=== PATIENT | female | born 1975 | race Caucasian/White ===

== ENCOUNTER → 2023-11-07 08:45 | Outpatient (REF) | payer BC, OTHER, SELFPAY | LOC: WDC 08:45 | PROVIDERS: ATTENDING PHYSICIAN Obstetrics & Gynecology; FAMILY PHYSICIAN Family Medicine | DX: Z12.31 Encounter for screening mammogram for malignant neoplasm of breast (principal) | CPT/HCPCS: 77063; 77067 ==

== ENCOUNTER 2024-04-24 14:40 | Emergency (ER) | payer BC, OTHER, SELFPAY ==
[2024-04-24 14:41] VITALS: BP 180/90
[2024-04-24 15:05] LABS: Urine Albumin Trace (Neg - Trace); Urine Bilirubin Negative (Negative); Urine Character Clear (Clear); Urine Color Yellow; Urine Glucose Negative (Negative); Urine Ketone Negative (Negative); Urine Leukocyte Trace (Negative); Urine Nitrite Negative (Negative); Urine Occult Blood Negative (Negative); Urine Urobilinogen Negative (Neg - 1+)
[2024-04-24 15:07] LABS: % Basophils 0.2 % (0-2); % Eosinophils 1.5 % (0-6); % Immature Granulocytes 0.2 % (0-0.5); % Lymphocytes 28.2 % (20.5-51.1); % Monocytes 6.1 % (1.7-9.3); % Neutrophils 63.8 % (42.2-75.2); Absolute Eosinophils 0.1 10^3/uL (0-0.7); Absolute Lymphocytes 2.5 10^3/uL (1.2-3.4); Absolute Monocytes 0.5 10^3/uL (0.1-0.6); Absolute Neutrophils 5.5 10^3/uL (1.4-6.5); Hematocrit 40.3 % (37.0-47.0); Hemoglobin 13.5 g/dL (12.0-16.0); Mean Corp Hgb Conc. 33.5 g/dL (33.0-37.0); Mean Corpuscular Hgb 29.4 pg (27.0-31.0); Mean Corpuscular Volume 87.8 fL (81.0-99.0); Mean Platelet Volume 9.7 fL (7.4-10.4); Nucleated Red Blood Cells % 0 %; Platelet Count 434 10^3/uL (130-400); Red Blood Cell Count 4.59 10^6/uL (4.20-5.40); Red Cell Dist. Width 12.6 % (11.5-14.5); White Blood Cell Count 8.7 10^3/uL (4.8-10.8)
[2024-04-24 15:14] LABS: Urine Squamous Cell 16-20 /LPF (Few)
[2024-04-24 15:15] LABS: Urine Bacteria Few (Negative); Urine Mucus Few; Urine Red Blood Cell 0-2 /HPF (0-2)
[2024-04-24 15:20] LABS: ALT (SGPT) 19 U/L (0-35); AST (SGOT) 21 U/L (14-36); Albumin 4.5 g/dl (3.5-5.0); Alkaline Phosphatase 71 U/L (38-126); Blood Urea Nitrogen 11 mg/dl (7-17); Calcium 9.3 mg/dl (8.4-10.2); Carbon Dioxide 26 mmol/L (22-30); Chloride 103 mmol/L (98-107); Glucose 101 mg/dl (70-99); Lipase 117 U/L (23-300); Sodium 139 mmol/L (135-145); Total Bilirubin 0.9 mg/dl (0.2-1.3); Total Protein 7.1 g/dl (6.3-8.2); eGFR > 60.00
--- NOTE | 2024-04-24 16:46 | ED.GENMED ---
History of Present Illness
<ALIN Huang Last Filed: 04/24/24 21:02>
General
Chief Complaint: Abdominal Pain
Source: patient
Exam Limitations: none
Time Seen by Provider: 04/24/24 16:45
Nursing documentation reviewed up to this point in time: agreed with
History of Present Illness
History of Present Illness:
49-year-old female with a past medical history of hypothyroidism, ovarian cyst presents emergency department today with concerns of right lower quadrant pain. Patient states that this started last night. She made appointment to see her primary
care provider today who sent her to the emergency department for appendicitis. Patient reports that the pain is a nagging type pain she cannot get in a position where she is comfortable or position where the pain lessens. Patient has no associated
nausea or vomiting. She notes no changes to her appetite, no fevers or chills, no changes to her stools. Patient reports that she has been feeling well the past few days. Of note, a few weeks ago she had upper abdominal pain and vomiting which
was attributed to gastritis. Patient has a past abdominal surgical history of . She is a family history of ovarian cancer in her mother. She denies any chest pain or shortness of breath.
Past History
<ALIN Huang Last Filed: 04/24/24 21:02>
Past History
ED Past Medical History: Hypothyroidism and Other (kidney stone)
ED Past Surgical History: Other (Thyroidectomy 1991)
Social History
Tobacco: Non-smoker
Personal:
Living: with family
Family History
Family History: Other
Review of Systems
<ALIN Huang Last Filed: 04/24/24 21:02>
Review of Systems
All Other Systems: ROS reviewed and negative except as documented in HPI and ROS
Phy Exam
<ALIN Huang Last Filed: 04/24/24 21:02>
Physical Exam
Physical Exam:
General: Patient is well appearing and in no acute distress; non-toxic
Skin: Warm and dry, no rashes or lesions
Head: Normocephalic, atraumatic
Eyes: Sclera non-icteric. EOMs intact. PERRLA.
Cardiac: Regular rate and rhythm, no murmurs
Peripheral Vascular: No lower extremity swelling or edema
Pulm: Normal respiratory effort, no wheezes, rales, or rhonchi
Abdomen: Right lower quadrant tenderness. No rebound tenderness, no guarding, negative psoas sign, negative obturator sign.
Neuro: CN II-XII intact, no focal neurologic deficits.
Psychiatric: Appropriate mood and affect.
Course
<Shanthi Carvalho PA-C - Last Filed: 04/24/24 21:02>
Orders/Labs/Results
Orders:
Orders
04/24/24 14:53
CMP [Comprehensive Metabolic Panel] Urgent
Complete Blood Count/With Diff Urgent
Lipase Urgent
Urinalysis Reflex To Culture Urgent
Date Specimen was Collected: 04/24/24
Time Specimen was Collected: 14:46
Urine Microscopic Reflex Cult Urgent
04/24/24 16:57
CT Abd/pelvis W Iv Cont Urgent
Comment:
Reason For Exam: rlq pain
04/24/24 20:33
US Abdomen - Appendix Only Urgent
Comment:
Reason For Exam: rlq pain
US Pelvis W Transvag Combined Urgent
Comment:
Reason For Exam: rlq pain
04/24/24 21:27
0.9% Sodium Chloride 1000 ml [Nss] 1,000 ml IV BOLUS
Abnormal Lab Results
04/24/24
14:53
Plt Count 434 H 10^3/uL
(130-400)
Glucose 101 H mg/dl
(70-99)
Leukocyte Esterase Rfl Trace A
(Negative)
Urine Bacteria (Reflex) Few A
(Negative)
04/24/24 14:53
04/24/24 14:53
Vital Signs
Initial and Last Documented VS:
Initial Vital Signs
Temp Pulse Resp BP Pulse Ox
98.8 F 96 16 180/90 98
04/24/24 14:41 04/24/24 14:41 04/24/24 14:41 04/24/24 14:41 04/24/24 14:41
Last Documented Vital Signs
Temp Pulse Resp BP Pulse Ox
98.2 F 78 16 151/66 95
04/24/24 23:00 04/24/24 23:00 04/24/24 23:00 04/24/24 23:00 04/24/24 23:30
<Randy West MD - Last Filed: 04/24/24 18:50>
Orders/Labs/Results
Orders:
Orders
04/24/24 14:53
CMP [Comprehensive Metabolic Panel] Urgent
Complete Blood Count/With Diff Urgent
Lipase Urgent
Urinalysis Reflex To Culture Urgent
Date Specimen was Collected: 04/24/24
Time Specimen was Collected: 14:46
Urine Microscopic Reflex Cult Urgent
04/24/24 16:57
CT Abd/pelvis W Iv Cont Urgent
Comment:
Reason For Exam: rlq pain
04/24/24 20:33
US Abdomen - Appendix Only Urgent
Comment:
Reason For Exam: rlq pain
US Pelvis W Transvag Combined Urgent
Comment:
Reason For Exam: rlq pain
04/24/24 21:27
0.9% Sodium Chloride 1000 ml [Nss] 1,000 ml IV BOLUS
Abnormal Lab Results
04/24/24
14:53
Plt Count 434 H 10^3/uL
(130-400)
Glucose 101 H mg/dl
(70-99)
Leukocyte Esterase Rfl Trace A
(Negative)
Urine Bacteria (Reflex) Few A
(Negative)
04/24/24 14:53
04/24/24 14:53
Vital Signs
Initial and Last Documented VS:
Initial Vital Signs
Temp Pulse Resp BP Pulse Ox
98.8 F 96 16 180/90 98
04/24/24 14:41 04/24/24 14:41 04/24/24 14:41 04/24/24 14:41 04/24/24 14:41
Last Documented Vital Signs
Temp Pulse Resp BP Pulse Ox
98.2 F 78 16 151/66 95
04/24/24 23:00 04/24/24 23:00 04/24/24 23:00 04/24/24 23:00 04/24/24 23:30
<Trevon Reyes MD - Last Filed: 04/25/24 00:56>
Orders/Labs/Results
Orders:
Orders
04/24/24 14:53
CMP [Comprehensive Metabolic Panel] Urgent
Complete Blood Count/With Diff Urgent
Lipase Urgent
Urinalysis Reflex To Culture Urgent
Date Specimen was Collected: 04/24/24
Time Specimen was Collected: 14:46
Urine Microscopic Reflex Cult Urgent
04/24/24 16:57
CT Abd/pelvis W Iv Cont Urgent
Comment:
Reason For Exam: rlq pain
04/24/24 20:33
US Abdomen - Appendix Only Urgent
Comment:
Reason For Exam: rlq pain
US Pelvis W Transvag Combined Urgent
Comment:
Reason For Exam: rlq pain
04/24/24 21:27
0.9% Sodium Chloride 1000 ml [Nss] 1,000 ml IV BOLUS
Abnormal Lab Results
04/24/24
14:53
Plt Count 434 H 10^3/uL
(130-400)
Glucose 101 H mg/dl
(70-99)
Leukocyte Esterase Rfl Trace A
(Negative)
Urine Bacteria (Reflex) Few A
(Negative)
04/24/24 14:53
04/24/24 14:53
Vital Signs
Initial and Last Documented VS:
Initial Vital Signs
Temp Pulse Resp BP Pulse Ox
98.8 F 96 16 180/90 98
04/24/24 14:41 04/24/24 14:41 04/24/24 14:41 04/24/24 14:41 04/24/24 14:41
Last Documented Vital Signs
Temp Pulse Resp BP Pulse Ox
98.2 F 78 16 151/66 95
04/24/24 23:00 04/24/24 23:00 04/24/24 23:00 04/24/24 23:00 04/24/24 23:30
<Shanthi Carvalho PA-C - Last Filed: 04/24/24 21:02>
MDM/Problems Addressed
Differential Diagnosis Includes:
see below
MDM/Problems Addressed:
NUMBER AND COMPLEXITY OF PROBLEMS ADDRESSED AT THE ENCOUNTER
� Chronic conditions affecting care: hypothyroidism
� Acute Exacerbation and/or Progression of Chronic Illness:
� Differential Diagnosis includes: Differentials include appendicitis, musculoskeletal sprain/strain, acute cystitis, ovarian cyst/torsion, hepatic flexture diverticulitis
AMOUNT AND/OR COMPLEXITY OF DATA TO BE REVIEWED AND ANALYZED
� I performed an independent evaluation of and my interpretation is:
CT:
Laboratory Studies: Unremarkable, no leukocytosis, LFTs normal, urinalysis unremarkable
Other:
� Review of other/old records: Reviewed previous ER physician documentation from 07/02/2023 patient seen for any right ureteral calculus
� Clinical information was obtained by an independent historian:
� Prescriptions/Medications Considered but not given: none
� Further testing considered but not performed: n/a
RISK OF COMPLICATIONS AND/OR MORBIDITY OR MORTALITY OF PATIENT MANAGEMENT
� Social determinants of health affecting care: none
� Discussion with other providers: ER attending
� Escalation of care including admission/observation vs risk of discharge considered:
49-year-old female past medical history of ovarian cysts, hypothyroidism presents emergency department today with concerns of right lower quadrant pain since last night. Patient reports that it is a nagging pain and she cannot feel position where
she feels comfortable or position that lessens her pain. She has no associated nausea or vomiting or fevers or chills. Will send for CAT scan to rule out appendicitis. Patient has no associated urinary symptoms.
CAT scan noted, shows evidence of ovarian cysts as well as partial UPJ obstruction. The CAT scan report states that they are not able to confidently visualize the appendix. On reassessment I did discuss these results with patient. I have a very
low suspicion for appendicitis at this time as patient is very well-appearing and is able to tolerate p.o. intake. I discussed case again with my attending, we offered repeat CAT scan the patient with oral contrast versus trying to visualize
appendix with ultrasound, getting pelvic ultrasound, and discharging with outpatient follow-up and continuing to monitor symptoms. Patient opted for ultrasounds. I think this is reasonable. Case signed out to Luda LARIOS at 9:00 pm/
<Shanthi Carvalho PA-C - Last Filed: 04/24/24 21:02>
*Critical Care Note
Total Time (30-74mins, 75-104mins- exclusive of procedures): Not Applicable
<Trevon Reyes MD - Last Filed: 04/25/24 00:56>
Update Note
Update Note:
UPDATE (Trevon Reyes MD)
I have seen and evaluated the patient after signout and reviewed all labs and imaging.
Focused HPI: I resumed care of this 49-year-old female with a past medical history of hypothyroidism, prior history of kidney stones and ovarian cysts, prior surgical history of and partial thyroidectomy; she presented to the ER for
evaluation of abdominal pain she was referred by her primary care physician. She says that her symptoms started on night and they were relatively mild but they persisted all day Saturday and she went to her primary doctor who referred her to
the ER to be evaluated. She reports pain is located to the right umbilicus. She says it is worse with palpations and certain movements, no clear relieving factors noted. She denies any associated nausea vomiting or diarrhea. She denies any UTI
symptoms. She denies having had similar symptoms in the past.
Physical exam: On examination the patient is a well-appearing female in no acute distress. She is mildly hypertensive but her heart rate is normal in the 70s she is breathing in a comfortable respiratory rate of 14 with an oxygen saturation of 95%
on room air. She is afebrile. Her abdomen is soft she has mild tenderness just to the right of her umbilicus but no peritoneal signs. She has no palpable abdominal masses.
Medical Decision Making: This is a 49-year-old female who presented with 24 hours of right lower quadrant abdominal pain. She had lab work sent off including a CBC which showed no leukocytosis. Her CMP was unremarkable. She had a lipase sent
which was normal. She has a urinalysis which was negative for infection, no blood. 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
obstruction. The appendix was unfortunately not definitively visualized. She is currently pending follow-up ultrasound to see if this can identify the appendix as well as a pelvic ultrasound.
Ultrasound reports reviewed: Appendix was not visualized, pelvic ultrasound shows dominant follicle right ovary 2.4 cm but good flow to both ovaries. She has a presumed fibroid on the uterus. No free fluid in the pelvis. At this point although we
cannot completely rule out appendicitis due to lack of visualization on CT or ultrasound clinical suspicion is somewhat low where she is minimally tender she has no leukocytosis or fever and she is actually quite hungry requesting food and drink. I
had a long discussion with the patient explaining the limitations of the studies we have done here. I explained the differential diagnosis for her symptoms and explained that although clinical suspicion at this point is somewhat lower for
appendicitis it cannot be completely ruled out especially if this is an early appendicitis. I offered her admission for serial exams and consideration of repeat scan with p.o. contrast tomorrow if symptoms persist or worsen; we also discussed
potential for discharge with watchful waiting and return for repeat scan if symptoms or not improving or if they are worsening in any point in time. Patient feels her symptoms are relatively mild and wishes to trial discharge with watchful waiting
and repeat scan if symptoms worsen or persist. Using shared decision making we will discharge patient home with plan as above. We spoke in detail about signs to return for including persistent pain, worsening pain, fever or any other concerning
symptoms. All questions answered.
ED Attending Note
<Shanthi Carvalho PA-C - Last Filed: 04/24/24 21:02>
-
Portions of this chart may have been created with voice recognition software.� Occasional wrong word or��sound alike� substitutions may have occurred due to the inherent limitations of voice recognition software.
<Randy West MD - Last Filed: 04/24/24 18:50>
ED Attending Note
Patient seen and examined by attending physician: Yes
I performed the substantive portion of visit, reviewed & personally made and approve the management plan that is documented in note by myself or SOPHIA.: Yes
ED Attending Note:
I have seen and evaluated the patient with a [id number] encounter. I have spoken to the [CECILIO] and involved in the medical history, the physical exam, medical decision making.
Evaluation and management service: agree unless noted differently below.
Results interpretation: agree unless noted differently below.
49-year-old woman with history of ovarian cyst presenting to the emergency department right lower quadrant abdominal pain. Patient states that last night she had upper abdominal pain that she thought was indigestion and a travel to her right lower
quadrant. Has been constant pain. Does wrap around to her back. She has had kidney stones before and this does not feel like a kidney stone. She does state that she has had multiple ovarian cyst that dissolve on its own. They have never
ruptured. She denies any nausea vomiting. No diarrhea. No constipation. No urinary. On exam patient is resting comfortably. She does have right lower quadrant tenderness to palpation. No rebound or guarding. No CVA tenderness. Differential
is appendicitis versus kidney stone versus UTI versus ovarian cyst rupture. Considered torsion though less likely. Will proceed with blood work and CT scan. Consider obtaining ultrasound however will hold off at this time.
Discharge Plan
Departure
Patient Disposition: Home (Routine Discharge)
Date of Disposition: 04/25/24
Time of Disposition: 00:54
Patient with high blood pressure during this ER visit?: Yes
Discharge Problem:
Abdominal pain
Instructions: Abdominal Pain
Prescriptions:
No Action
cetirizine 10 MG tablet
10 mg PO DAILY@1200
evening primrose oil 500 MG capsule
1,300 mg PO HS
cholecalciferol (vitamin D3) 1,000 UNITS tablet
1,000 units PO DAILY
Vitamin E
180 mg PO DAILY
Referrals:
Renata Medina MD [Family Provider] -
Activity Restrictions/Additional Instructions:
You were seen in the emergency room for abdominal pain. Your blood work and scans showed no definite source for your abdominal pain; unfortunately we were not able to completely visualize your appendix and so we could not rule this out 100%.
Despite this, there were no other signs on imaging or lab work to suggest appendicitis. If you notice your symptoms or not improving within the next few days you should follow-up with your primary doctor or return here to have a repeat CT scan with
oral contrast. If you feel your symptoms are worsening at any point in time or if you develop a fever you should return immediately to the emergency to be reassessed.
Thank you for visiting the Emergency Department at [facility].
1. Please schedule a follow up appointment as directed. Call first thing tomorrow morning to make an appointment.
2. If indicated, please take your medications as instructed and indicated on discharge paperwork.
3. If any of your symptoms do not improve, or persist, or become more severe within 6-12 hours, please return to the emergency department for further care.
4. Please return to the emergency department if you develop a headache, neck pain/stiffness, fever greater than 100.4F, chest pain, shortness of breath, persistent nausea, vomiting, slurred speech, difficulty walking, numbness/tingling, weakness,
signs of infection or any other symptoms that are worrisome to you.
Please call [phone] if you have any questions.
Interventions
Interventions:
*Risk Screen - Suicide Last Done: 04/24/24 14:41
*General Assessment Last Done: 04/24/24 14:41
*Neglect/Abuse Screening Last Done: 04/24/24 14:41
ED- Fall Risk Assessment Last Done: 04/24/24 18:15
*ED COVID-19 Vaccine History Last Done: 04/24/24 14:41
*Nursing Disposition Last Done: 04/25/24 01:07
QG-Phbdgo-Oyniuensho Assessment Last Done: 04/24/24 18:15
Discharge Date and Time
Discharge Date/Time: 04/25/24 01:07
Print Language: LITHUANIAN
[2024-04-24 18:15] VITALS: BMI 45.1
[2024-04-24 19:50] VITALS: BP 176/78
[2024-04-24] MEDS: NSS 1000 IV (21:32)
[2024-04-24 22:40] VITALS: BP 168/78
[2024-04-24 23:00] VITALS: BP 151/66
== END 2024-04-25 01:07 | disposition home or self-care (01) ==
LOC: EMR 14:40
PROVIDERS: Student in an Organized Health Care Education/Training Program; EMERGENCY PHYSICIAN Student in an Organized Health Care Education/Training Program; FAMILY PHYSICIAN Family Medicine
DX: R10.31 Right lower quadrant pain (principal); R03.0 Elevated blood-pressure reading, without diagnosis of hypertension; E03.9 Hypothyroidism, unspecified; N83.201 Unspecified ovarian cyst, right side
CPT/HCPCS: 99285; 96360; 74177; 76705; 76830; 76856; 80053; 81003; 81015; 83690; 85025; Q9967

== ENCOUNTER 2024-05-05 06:16 | Day surgery (SDC) | payer BC, OTHER, SELFPAY | END 2024-05-05 09:13 | disposition home or self-care (01) | LOC: GI 06:16 | PROVIDERS: ATTENDING PHYSICIAN Internal Medicine; FAMILY PHYSICIAN Family Medicine | DX: Z12.11 Encounter for screening for malignant neoplasm of colon (principal); D12.0 Benign neoplasm of cecum; K57.30 Diverticulosis of large intestine without perforation or abscess without bleeding; K62.89 Other specified diseases of anus and rectum; K64.4 Residual hemorrhoidal skin tags | CPT/HCPCS: 45385; 88305 ==

== ENCOUNTER → 2024-06-03 12:58 | Outpatient (REF) | payer BC, OTHER, SELFPAY | LOC: RAD 12:58 | PROVIDERS: ATTENDING PHYSICIAN Internal Medicine Rheumatology; FAMILY PHYSICIAN Family Medicine | DX: M32.9 Systemic lupus erythematosus, unspecified (principal); M70.62 Trochanteric bursitis, left hip | CPT/HCPCS: 73523 ==

== ENCOUNTER → 2024-07-13 12:56 | Outpatient (REF) | payer BC, OTHER, SELFPAY | LOC: HWRAD 12:56 | PROVIDERS: ATTENDING PHYSICIAN Internal Medicine; FAMILY PHYSICIAN Family Medicine | DX: N20.0 Calculus of kidney (principal) | CPT/HCPCS: 76775 ==

== ENCOUNTER → 2024-08-05 12:58 | Outpatient (REF) | payer BC, OTHER, SELFPAY | LOC: RAD 12:58 | PROVIDERS: ATTENDING PHYSICIAN Obstetrics & Gynecology; FAMILY PHYSICIAN Family Medicine | DX: N93.9 Abnormal uterine and vaginal bleeding, unspecified (principal); D25.9 Leiomyoma of uterus, unspecified | CPT/HCPCS: 76830; 76856 ==

== ENCOUNTER 2024-08-22 11:18 | Day surgery (SDC) | payer BC, OTHER, SELFPAY ==
[2024-08-22 06:30] VITALS: BP 158/84
[2024-08-22] MEDS: TORADOL 30 MG IV (07:02)
[2024-08-22 07:08] LABS: % Basophils 0.4 % (0-2); % Eosinophils 1.1 % (0-6); % Immature Granulocytes 0.3 % (0-0.5); % Lymphocytes 18.7 % (20.5-51.1); % Monocytes 6.2 % (1.7-9.3); % Neutrophils 73.3 % (42.2-75.2); Absolute Eosinophils 0.1 10^3/uL (0-0.7); Absolute Lymphocytes 1.9 10^3/uL (1.2-3.4); Absolute Monocytes 0.6 10^3/uL (0.1-0.6); Absolute Neutrophils 7.4 10^3/uL (1.4-6.5); Hematocrit 38.2 % (37.0-47.0); Hemoglobin 13.3 g/dL (12.0-16.0); Mean Corp Hgb Conc. 34.8 g/dL (33.0-37.0); Mean Corpuscular Hgb 30.2 pg (27.0-31.0); Mean Corpuscular Volume 86.8 fL (81.0-99.0); Mean Platelet Volume 10.3 fL (7.4-10.4); Nucleated Red Blood Cells % 0 %; Platelet Count 394 10^3/uL (130-400); Red Cell Dist. Width 12.6 % (11.5-14.5); White Blood Cell Count 10.1 10^3/uL (4.8-10.8)
[2024-08-22 07:08] LABS: Urine Albumin 1+ (Neg - Trace); Urine Bilirubin Negative (Negative); Urine Character Clear (Clear); Urine Color Yellow; Urine Glucose Negative (Negative); Urine Ketone Negative (Negative); Urine Leukocyte Negative (Negative); Urine Nitrite Negative (Negative); Urine Occult Blood 3+ (Negative); Urine Specific Gravity 1.015 (<1.030); Urine Urobilinogen Negative (Neg - 1+)
[2024-08-22 07:19] LABS: Urine Amorphous Seen; Urine Bacteria Few (Negative); Urine White Cell 0-2 /HPF (0-5)
[2024-08-22 07:28] LABS: HCG, Serum Qualitative Screen Negative
[2024-08-22 07:29] LABS: ALT (SGPT) 19 U/L (0-35); AST (SGOT) 19 U/L (14-36); Albumin 4.3 g/dl (3.5-5.0); Alkaline Phosphatase 61 U/L (38-126); Blood Urea Nitrogen 16 mg/dl (7-17); Calcium 9.3 mg/dl (8.4-10.2); Carbon Dioxide 24 mmol/L (22-30); Chloride 108 mmol/L (98-107); Glucose 108 mg/dl (70-99); Lipase 82 U/L (23-300); Potassium 3.8 mmol/L (3.5-5.1); Sodium 140 mmol/L (135-145); Total Protein 6.8 g/dl (6.3-8.2); eGFR > 60.00
[2024-08-22 08:30] VITALS: BMI 39.1
[2024-08-22 08:33] VITALS: BP 152/69
[2024-08-22] MEDS: DILAUDID 0.5 MG IV (08:55)
[2024-08-22] MEDS: ZOFRAN 4 MG IV (08:55)
[2024-08-22 09:00] VITALS: BP 152/65
--- NOTE | 2024-08-22 09:14 | ED.GENMED ---
History of Present Illness
General
Chief Complaint: Abdominal Pain
Source: patient
Exam Limitations: none
Time Seen by Provider: 08/22/24 08:59
Nursing documentation reviewed up to this point in time: agreed with
History of Present Illness
History of Present Illness:
49-year-old female with history kidney stones presenting to the emergency department for evaluation of acute onset right flank pain since this morning. Patient states she was awoken this morning around 3:30 AM with severe nausea which was quickly
followed by sharp right flank pain rating into her right abdomen. Pain has been relatively constant since although waxes/wanes in severity. Patient reports associated nausea. She denies any fever, dysuria, hematuria.
Patient states she felt fine prior to going to sleep last night.
Patient has history of kidney stones and follows with Dr. Altman. She was apparently scheduled to have a stone removed from her right kidney on September 07.
Past History
Past History
ED Past Medical History: Hypothyroidism and Other (kidney stone)
ED Past Surgical History: Other (Thyroidectomy 1991)
Social History
Tobacco: Non-smoker
Personal:
Living: with family
Family History
Family History: Other
Review of Systems
Review of Systems
Allergies reviewed?: Yes
All Other Systems: ROS reviewed and negative except as documented in HPI and ROS
Phy Exam
Physical Exam
Physical Exam:
Vitals: Hypertensive, otherwise vital signs stable. Afebrile
General: Patient is mild distress due to pain.
Skin: Warm and dry, no rashes or lesions
Head: Normocephalic, atraumatic
Eyes: Sclera nonicteric. EOMs intact. No nystagmus.
Throat: Protecting airway
Neck: Normal ROM, no cervical spine tenderness, no meningismus
Cardiac: Regular rate and rhythm, no murmurs.
Pulm: Normal respiratory effort, no wheezes, rales, rhonchi heard on exam
.
Abdomen: Abdomen soft. Mild tenderness over right flank and right mid abdomen. No tenderness McBurney's point.
Extremities: No evidence of cyanosis or edema. Palpable DP pulses bilaterally
Neuro: AAOx3. Grossly intact.
Psychiatric: Normal affect.
Course
Orders/Labs/Results
Orders:
Orders
08/22/24 06:41
IV Insert/Care/Rem.- Treatment PRN
08/22/24 06:42
Test Result ONCE
08/22/24 06:52
Complete Blood Count/With Diff Urgent
Comprehensive Metabolic Panel Urgent
HCG, Serum Qualitative Screen Urgent
Comment: Notify provider if positive test present
Lipase Urgent
08/22/24 06:56
Urinalysis Reflex To Culture Urgent
Date Specimen was Collected: 08/22/24
Time Specimen was Collected: 06:42
Urine Microscopic Reflex Cult Urgent
08/22/24 06:59
Ketorolac [Toradol] 30 mg .ROUTE .STK-MED ONE
08/22/24 07:01
Ketorolac [Toradol] 30 mg IV NOW STA
08/22/24 07:07
CT Abd/pel Without Iv Or Oral Urgent
Comment:
Reason For Exam: R flank pain
08/22/24 08:51
HYDROmorphone [Dilaudid] 0.5 mg .ROUTE .STK-MED ONE
Ondansetron Injectable [Zofran] 4 mg .ROUTE .STK-MED ONE
08/22/24 08:52
HYDROmorphone [Dilaudid] 0.5 mg IV NOW STA
Ondansetron Injectable [Zofran] 4 mg IV NOW STA
08/22/24 10:09
UROLOGY CONSULT Urgent
Consulting Provider: Tobi Edwards Jr.
Was physician already notified: Yes
08/22/24 10:30
0.9% Sodium Chloride 1000 ml [Nss] 1,000 ml IV BOLUS
08/22/24 10:32
Electrocardiogram (*1) Urgent
Reason for Study: PreOp
EKG- Treatment ONCE
08/22/24 10:57
Gentamicin Sulfate [Gentamicin] 380 mg 0.9% Sodium Chloride [Nss] 50 ml IV NOW
08/22/24 11:09
Fentanyl Citrate/Pf [Sublimaze] 100 mcg .ROUTE .STK-MED ONE
08/22/24 11:10
Dexamethasone Sod Phosphate [Decadron] 20 mg .ROUTE .STK-MED ONE
Metoclopramide [Reglan] 10 mg .ROUTE .STK-MED ONE
Ondansetron Injectable [Zofran] 4 mg .ROUTE .STK-MED ONE
Propofol [Diprivan] 40 ml .ROUTE .STK-MED
08/22/24 11:18
HYDROmorphone [Dilaudid] 0.25 mg IV PACU-Q5MPRN PRN
HYDROmorphone [Dilaudid] 0.5 mg IV PACU-Q5MPRN PRN
Meperidine [Demerol] 12.5 mg IV PACU-Q5MPRN PRN
Ondansetron Injectable [Zofran] 4 mg IV PACU-ONCEPRN PRN
Notify MD As Directed
Notify physician if: for SDS patients with known or suspected sleep obstructive sleep apnea, monitor in the
PACU.
Notify MD for any apneic/desaturation episodes
O2 Therapy [RESP] Urgent
Titrate/Wean O2 to maintain O2 sat greater than (%): 92
Special Instructions: -Provide supplemental oxygen to achieve O2 sat of 92% or greater.
-After 15 min, may wean O2 and discontinue if patient is able to maintain O2 sat of 92%
or greater during recovery period.
If patient is a discharge home, without oxygen therapy, notify anestheiologist if
unable to maintain O2 SAT of 92% or greater on room air for MD clearance.
08/22/24 11:30
Midazolam HCl [Versed] 2 mg .ROUTE .STK-MED ONE
Normosol (Mult Electrolytes) [Normosol-R/Plasmalyte-A] 1,000 ml IV PER PROTOCOL
08/22/24 12:01
Stone Analysis With Image [S] Routine
Comment: right ureteral stone
08/22/24 12:03
Propofol [Diprivan] 40 ml .ROUTE .STK-MED
08/22/24 12:18
CR Abdomen - 1 View Routine
Reason For Exam: CYSTO, RT URETERAL STONE, LASER, STONE EXTRACTION, STENT PLACED
RF Fluoroscopy, C-arm Routine
08/22/24 12:34
Phenazopyridine HCl [Pyridium] 200 mg .ROUTE .STK-MED ONE
08/22/24 12:35
Tolterodine Extended Release [Detrol LA] 4 mg .ROUTE .STK-MED ONE
08/22/24 13:00
Ibuprofen [Motrin] 600 mg PO SDS-Q6HPRN PRN
Normosol (Mult Electrolytes) [Normosol-R/Plasmalyte-A] 1,000 ml IV SDS-ONCE
Oxycodone [Roxicodone] 5 mg PO SDS-Q4HPRN PRN
Phenazopyridine HCl [Pyridium] 200 mg PO ONCE ONE
Tolterodine Extended Release [Detrol LA] 4 mg PO ONCE ONE
08/22/24 15:00
Ondansetron Injectable [Zofran] 4 mg IV SDS-ONCEPRN PRN
Abnormal Lab Results
08/22/24 08/22/24
06:52 06:56
Absolute Neuts (auto) 7.4 H 10^3/uL
(1.4-6.5)
Lymphocytes % 18.7 L %
(20.5-51.1)
Chloride 108 H mmol/L
(98-107)
Glucose 108 H mg/dl
(70-99)
Ur Occult Blood Reflex 3+ A
(Negative)
Urine RBC 3-6 A /HPF
(0-2)
Urine Bacteria (Reflex) Few A
(Negative)
Urine Albumin (Reflex) 1+ A
(Neg - Trace)
08/22/24 06:52
08/22/24 06:52
Vital Signs
Initial and Last Documented VS:
Initial Vital Signs
Temp Pulse Resp BP Pulse Ox
98.5 F 72 18 158/84 98
08/22/24 06:30 08/22/24 06:30 08/22/24 06:30 08/22/24 06:30 08/22/24 06:30
Last Documented Vital Signs
Temp Pulse Resp BP Pulse Ox
98.5 F 72 18 146/59 97
08/22/24 06:30 08/22/24 06:30 08/22/24 06:30 08/22/24 10:00 08/22/24 10:00
MDM/Problems Addressed
Differential Diagnosis Includes:
Not limited to: Ureterolithiasis, pyelonephritis, appendicitis, ovarian cyst, etc.
MDM/Problems Addressed:
49-year-old female with acute onset right flank pain associated with nausea which started this morning. No fever or dysuria. She does have history of kidney stones. Patient hypertensive, otherwise with stable vital signs. She is afebrile.
Physical exam as above. Prior to my evaluation�patient received 30 mg IM Toradol and 0.5 mg Dilaudid, as well as 4 mg IV Zofran. Labs initiated in triage without acute abnormalities. No leukocytosis. Kidney function normal. CT scan was obtained
which shows a 5 mm obstructing stone in the proximal right ureter associated with severe right-sided hydronephrosis. Urine appears clean without any signs of infection. Patient was scheduled for removal of kidney the stone on right side with on
September 08. Will discuss with urology as patient currently scheduled for procedure on September 08 and pain remains uncontrolled despite IV Dilaudid and IM Toradol. Will continue to monitor for patient's pain control and allow IV fluids to run pending
urology input.
Update: Discussed with urology who came down to evaluate patient at bedside. After lengthy discussion with patient�she will proceed with ureteroscopy +/- stent for surgical intervention today. Will obtain EKG, give IV fluids, IV gentamicin per
urology prior to OR. Patient disposition to the OR under urology service in stable condition. Plan for discharge home later today if procedure is uncomplicated.
Chronic conditions affecting care:
Hx kidney stones
Acute Exacerbation and/or Progression of Chronic Illness:
5 mm obstructing right proximal ureteral stone
*Radiology
Radiology exam reviewed: radiology read reviewed (5 cm obstructing stone in proximal right ureter)
*Pulse Oximetry
Patient hypoxic: no
*EKG
Interpreted by ED Provider?: NA
*Electrical Design Technologist Interpretation
Rate: Electrical Design Technologist- N/A
*Critical Care Note
Total Time (30-74mins, 75-104mins- exclusive of procedures): Not Applicable
Patient Management
Discussion with other providers: Manager Systems (Case discussed with urology)
Escalation/DeEscalation of care consider admission/obs:
Patient disposition to the OR for urology procedure
ED Attending Note
-
Portions of this chart may have been created with voice recognition software.� Occasional wrong word or��sound alike� substitutions may have occurred due to the inherent limitations of voice recognition software.
Discharge Plan
Departure
Patient Disposition: OR
Date of Disposition: 08/22/24
Time of Disposition: 10:29
Admit to doctor: Dr. Edwards
Presentation/result/management discussed w/ accepting MD/DO: Urology
Discharge Problem:
Calculus of proximal right ureter
Interventions
Interventions:
*Risk Screen - Suicide Last Done: 08/22/24 06:30
*General Assessment Last Done: 08/22/24 06:30
*Neglect/Abuse Screening Last Done: 08/22/24 06:30
*ED- Fall Risk Assessment Last Done: 08/22/24 06:30
*ED COVID-19 Vaccine History Last Done: 08/22/24 06:30
*Nursing Disposition Last Done: 08/22/24 11:12
UP-Qntpvr-Normefqfkg Assessment Last Done: 08/22/24 08:30
Discharge Date and Time
Discharge Date/Time: 08/22/24 11:13
[2024-08-22 10:00] VITALS: BP 146/59
[2024-08-22] MEDS: NSS 1000 IV (11:09)
[2024-08-22] MEDS: Pyridium 200 MG PO (13:27)
[2024-08-22] MEDS: DETROL LA 4 MG PO (13:27)
== END 2024-08-22 13:00 | disposition home or self-care (01) ==
LOC: SDS 11:18
PROVIDERS: Student in an Organized Health Care Education/Training Program; ATTENDING PHYSICIAN Specialist; EMERGENCY PHYSICIAN Emergency Medicine; FAMILY PHYSICIAN Family Medicine
DX: N13.2 Hydronephrosis with renal and ureteral calculous obstruction (principal); Z87.442 Personal history of urinary calculi
CPT/HCPCS: 52356; 74018; 74176; 76000; 80053; 81003; 81015; 82365; 83690; 84703; 85025; 93005; 96374; 96375; 96376; 99285

== ENCOUNTER 2024-11-08 20:21 | Emergency (ER) | payer BC, OTHER, SELFPAY ==
[2024-11-08 20:27] VITALS: BP 178/90
[2024-11-08 20:47] LABS: Hematocrit 39.8 % (37.0-47.0); Hemoglobin 13.9 g/dL (12.0-16.0); Mean Corp Hgb Conc. 34.9 g/dL (33.0-37.0); Mean Corpuscular Volume 86.3 fL (81.0-99.0); Nucleated Red Blood Cells % 0 %; Platelet Count 422 10^3/uL (130-400); Red Cell Dist. Width 12.9 % (11.5-14.5)
[2024-11-08 21:00] LABS: Urine Character Clear (Clear)
[2024-11-08 21:10] LABS: ALT (SGPT) 17 U/L (0-35); AST (SGOT) 19 U/L (14-36); Albumin 4.5 g/dl (3.5-5.0); Alkaline Phosphatase 79 U/L (38-126); Blood Urea Nitrogen 9 mg/dl (7-17); Calcium 9.6 mg/dl (8.4-10.2); Carbon Dioxide 27 mmol/L (22-30); Chloride 105 mmol/L (98-107); Glucose 90 mg/dl (70-99); Potassium 4.3 mmol/L (3.5-5.1); Sodium 138 mmol/L (135-145); Total Protein 7.0 g/dl (6.3-8.2); eGFR > 60.00
[2024-11-08 21:49] VITALS: BMI 37.9
--- NOTE | 2024-11-08 21:51 | EDRN ---
Pt has pain L flank intermittently for 1 week, more consistent last 3 days. Pt has known kidney stone, scheduled to have it removed in December. No fever/chills/cough. Pain waxes and wanes dull/sharp. Mild nausea, no vomiting. No abdominal
pain or urinary symptoms. No pain medications taken.
[2024-11-08 21:55] VITALS: BP 169/86
--- NOTE | 2024-11-08 22:13 | ED.GENMED ---
History of Present Illness
General
Chief Complaint: Flank Pain
Time Seen by Provider: 11/08/24 21:49
History of Present Illness
History of Present Illness:
Patient presents to the emergency department with left flank pain. symptoms started 2 days ago. Have been gradually worsening. Pain comes in waves. Feels like a pressure on her side in her back. No nausea or vomiting. No fevers or chills.
Had a ureteral stent placed on the right in August.
Past History
Past History
ED Past Medical History: Hypothyroidism and Other (kidney stone)
ED Past Surgical History: Other (Thyroidectomy 1991)
Social History
Tobacco: Non-smoker
Personal:
Living: with family
Family History
Family History: Other
Phy Exam
Physical Exam
Physical Exam:
GENERAL APPEARANCE: NAD, well developed/ well nourished
EYES lids/conjunctiva normal
EARS/NOSE/THROAT Mucous membranes moist, uvula midline without oral pharyngeal erythema, exudate or swelling
HEAD/NECK normocephalic atraumatic, neck is supple.
RESPIRATORY respiratory effort normal, speaks in full sentences, no accessory muscle use. Lungs clear to auscultation without rhonchi, wheezes, rales
CARDIAC Regular rate and rhythm, no edema.
ABDOMINAL Soft, ND/NT
BACK no CVA ttp
MUSCLES/EXTREMITIES No abnormal range of motion, no swelling.
SKIN Warm, pink and dry. No rashes
NEUROLOGICAL Speech is clear and appropriate. Normal level of consciousness. 5/5 strength in all extremities.
PSYCH Normal mood and affect. Judgement/competence is appropriate
Course
Orders/Labs/Results
Orders:
Orders
11/08/24 20:42
Complete Blood Count/With Diff Urgent
Comprehensive Metabolic Panel Urgent
11/08/24 20:49
Urinalysis Reflex To Culture Urgent
Date Specimen was Collected: 11/08/24
Time Specimen was Collected: 20:29
11/08/24 22:12
CT Abd/pel Without Iv Or Oral Urgent
Comment:
Reason For Exam: L flank pain, hx of stones
11/09/24 00:39
MetroNIDAZOLE [Flagyl] 500 mg PO NOW STA
11/09/24 00:40
Ciprofloxacin HCl [Cipro] 500 mg PO ONCE ONE
Abnormal Lab Results
11/08/24
20:42
WBC 12.0 H 10^3/uL
(4.8-10.8)
Plt Count 422 H 10^3/uL
(130-400)
Absolute Neuts (auto) 8.0 H 10^3/uL
(1.4-6.5)
Absolute Monos (auto) 0.7 H 10^3/uL
(0.1-0.6)
11/08/24 20:42
11/08/24 20:42
Vital Signs
Initial and Last Documented VS:
Initial Vital Signs
Temp Pulse Resp BP Pulse Ox
98.4 F 85 16 178/90 98
11/08/24 20:27 11/08/24 20:27 11/08/24 20:27 11/08/24 20:27 11/08/24 20:27
Last Documented Vital Signs
Temp Pulse Resp BP Pulse Ox
98.4 F 86 14 166/93 97
11/08/24 20:27 11/09/24 00:30 11/09/24 00:30 11/09/24 00:30 11/09/24 00:30
*Pulse Oximetry
SaO2: 96
Oxygen Mode of Delivery: Room air
Patient hypoxic: no
*Critical Care Note
Total Time (30-74mins, 75-104mins- exclusive of procedures): Not Applicable
ED Attending Note
ED Attending Note
ED Attending Note:
Left flank pain in a patient with known stones. She is very comfortable appearing, afebrile, nontoxic. She is currently very comfortable and declining any pain medication. Will CT scan to rule out obstructing stone.
-
Portions of this chart may have been created with voice recognition software.� Occasional wrong word or��sound alike� substitutions may have occurred due to the inherent limitations of voice recognition software.
Discharge Plan
Departure
Patient Disposition: Home (Routine Discharge)
Date of Disposition: 11/09/24
Time of Disposition: 00:41
Patient with high blood pressure during this ER visit?: Yes
Discharge Problem:
Diverticulitis
Instructions: Diverticulitis - Discharge instructions, Clear Liquid Diet
Prescriptions:
New
metronidazole 500 mg tablet
500 mg PO TID Qty: 21 0RF
ciprofloxacin HCl 500 mg tablet
500 mg PO BID Qty: 14 0RF
No Action
cetirizine 10 MG tablet
10 mg PO DAILY
evening primrose oil 500 MG capsule
1,000 mg PO QPM
Referrals:
Renata Medina MD [Family Provider, Family Practice]
Interventions
Interventions:
*Risk Screen - Suicide Last Done: 11/08/24 20:27
*General Assessment Last Done: 11/08/24 20:27
*Neglect/Abuse Screening Last Done: 11/08/24 20:27
*ED- Fall Risk Assessment Last Done: 11/08/24 21:49
*Nursing Disposition Last Done: 11/09/24 01:08
XB-Sxlaqd-Wnapysapss Assessment Last Done: 11/08/24 21:56
ED-Female Genitourinary Assessment Last Done: 11/08/24 21:56
Discharge Date and Time
Discharge Date/Time: 11/09/24 01:08
Print Language: LITHUANIAN
[2024-11-09 00:30] VITALS: BP 166/93
[2024-11-09] MEDS: CIPRO 500 MG PO (00:52)
[2024-11-09] MEDS: FLAGYL 500 MG PO (00:52)
== END 2024-11-09 01:08 | disposition home or self-care (01) ==
LOC: EMR 20:21
PROVIDERS: EMERGENCY PHYSICIAN Emergency Medicine; FAMILY PHYSICIAN Family Medicine
DX: K57.32 Diverticulitis of large intestine without perforation or abscess without bleeding (principal); E03.9 Hypothyroidism, unspecified; Z87.442 Personal history of urinary calculi
CPT/HCPCS: 99284; 74176; 80053; 81003; 85025

== ENCOUNTER 2024-12-10 06:24 | Day surgery (SDC) | payer BC, OTHER, SELFPAY ==
[2024-12-10] VITALS (8 sets, daily range): BP systolic 110–159; BP diastolic 58–82; BMI 37.0
[2024-12-10 08:54] LABS: Urine Character Clear (Clear)
[2024-12-10] MEDS: NORMOSOL-R/PLASMALYTE-A 1000 IV (09:05)
[2024-12-10] MEDS: DETROL LA 4 MG PO (11:25)
--- NOTE | 2024-12-10 11:26 | PTCARENOTE ---
pyridium and detrol given in SDS per patient request. Patient wanted some food in her stomach before taking the medication.
== END 2024-12-10 11:51 | disposition home or self-care (01) ==
LOC: SDS 06:24
PROVIDERS: ATTENDING PHYSICIAN Specialist
DX: N20.0 Calculus of kidney (principal); Z87.442 Personal history of urinary calculi
CPT/HCPCS: 52356; 74018; 76000; 81003; 82365; 87086; C1894; C2617; J1580

== ENCOUNTER → 2024-12-17 11:43 | Outpatient (REF) | payer BC, OTHER, SELFPAY | LOC: WDC 11:43 | PROVIDERS: ATTENDING PHYSICIAN Obstetrics & Gynecology; FAMILY PHYSICIAN Family Medicine | DX: Z12.31 Encounter for screening mammogram for malignant neoplasm of breast (principal) | CPT/HCPCS: 77063; 77067 ==

== ENCOUNTER → 2024-12-31 09:45 | Outpatient (REF) | payer BC, OTHER, SELFPAY | LOC: HWRAD 09:45 | PROVIDERS: ATTENDING PHYSICIAN Family Medicine | DX: R91.1 Solitary pulmonary nodule (principal) | CPT/HCPCS: 71250 ==